=== PATIENT | male | born 1995 | race Caucasian/White ===

== ENCOUNTER 2017-12-24 01:47 | Emergency (ER) | payer BC ==
--- NOTE | 2017-12-24 03:26 | ER Document Report ---
ED General - General Chief Complaint: Abdominal Pain Stated Complaint: ABDOMINAL PAIN Time Seen by Provider: 12/24/17 02:19 Notes: Patient is a 22-year-old male without past medical history, no prior surgical history who presents with 24 hours of right upper quadrant abdominal pain with associated nausea and anorexia. The patient reports that the pain has been constant but intermittently worsens. He describes the worsening episodes as severe, stabbing pain to his right upper quadrant. He notes associated nausea with this pain but has not vomited. Nothing seems to trigger the pain and it does ease off without intervention. He denies any history of similar symptoms in the past. He has not seen his primary doctor regarding today's concerns. He denies any associated fever or constitutional symptoms. TRAVEL OUTSIDE OF THE [place] IN LAST 30 DAYS: No - Related Data Allergies/Adverse Reactions: aspirin Allergy (Intermediate, Verified 12/24/17 03:18) Past Medical History - General Information source: Patient - Social History Smoking Status: Never Smoker Chew tobacco use (# tins/day): No Frequency of alcohol use: None Drug Abuse: None Lives with: Spouse/Significant other Family History: Reviewed & Not Pertinent Patient has suicidal ideation: No Patient has homicidal ideation: No Renal/ Medical History: Denies: Hx Peritoneal Dialysis Past Surgical History: Comment Only: Hx Cholecystectomy - mother has a hx of cholecystectomy. Review of Systems - Review of Systems Notes: Constitutional: Negative for fever. HENT: Negative for sore throat. Eyes: Negative for visual changes. Cardiovascular: Negative for chest pain. Respiratory: Negative for shortness of breath. Gastrointestinal: Positive for abdominal pain and nausea Genitourinary: Negative for dysuria. Musculoskeletal: Negative for back pain. Skin: Negative for rash. Neurological: Negative for headaches, weakness or numbness. 10 point ROS negative except as marked above and in HPI. Physical Exam - Vital signs Vitals: Temp Pulse Resp BP Pulse Ox 97.7 F 74 20 151/78 H 98 12/24/17 01:48 12/24/17 01:48 12/24/17 01:48 12/24/17 01:48 12/24/17 01:48 Interpretation: Hypertensive Notes: PHYSICAL EXAMINATION: GENERAL: Well-appearing, well-nourished and in no acute distress. HEAD: Atraumatic, normocephalic. EYES: Pupils equal round and reactive to light, extraocular movements intact, sclera anicteric, conjunctiva are normal. ENT: nares patent, oropharynx clear without exudates. Moist mucous membranes. NECK: Normal range of motion, supple without lymphadenopathy LUNGS: Breath sounds clear to auscultation bilaterally and equal. No wheezes rales or rhonchi. HEART: Regular rate and rhythm without murmurs ABDOMEN: Soft, focal tenderness of the right upper quadrant with a positive Benavidez sign. No rebound or guarding. No other localized areas of tenderness EXTREMITIES: Normal range of motion, no pitting or edema. No cyanosis. NEUROLOGICAL: No focal neurological deficits. Moves all extremities spontaneously and on command. PSYCH: Normal mood, normal affect. SKIN: Warm, Dry, normal turgor, no rashes or lesions noted. Course - Re-evaluation Re-evalutation: 12/24/17 03:26 Patient's presentation appears to most consistent with acute cholecystitis versus symptomatic cholelithiasis. Bedside ultrasound does show gallstones and a slightly enlarged gallbladder. The patient has no additional areas of pain. Alternative diagnostic considerations include an acute pancreatitis, less likely an acute hepatitis or gastritis. Will obtain basic laboratories in addition to a right upper quadrant ultrasound to further assess. 12/24/17 04:38 Right upper quadrant ultrasound shows gallstones without any pericholecystic fluid or wall thickening or signs to be consistent with acute cholecystitis. Laboratories are likewise reassuring without any evidence of an acute hepatitis , pancreatitis or leukocytosis. The patient has been p.o. challenged and has tolerated fluids without any difficulty recurrence of pain. At this time I clinically suspect symptomatic cholelithiasis. I have informed the patient to avoid any kind of fat containing food, encouraged weight loss, and have encouraged him to follow-up closely with a surgeon as an outpatient and provided him a referral. At this time will discharge with return precautions and follow-up recommendations. Verbal discharge instructions given a the bedside and opportunity for questions given. Medication warnings reviewed. Patient is in agreement with this plan and has verbalized understanding of return precautions and the need for primary care follow-up in the next 24-72 hours. - Vital Signs Vital signs: Temp Pulse Resp BP Pulse Ox 97.7 F 74 20 151/78 H 98 12/24/17 01:48 12/24/17 01:48 12/24/17 01:48 12/24/17 01:48 12/24/17 01:48 - Laboratory Result Diagrams: 12/24/17 03:25 12/24/17 03:25 Laboratory results interpreted by me: 12/24/17 12/24/17 03:25 03:25 WBC 10.9 H Alkaline Phosphatase 37 L - Diagnostic Test Radiology reviewed: Reports reviewed Discharge - Discharge Clinical Impression: Right upper quadrant abdominal pain, Symptomatic cholelithiasis, Morbid obesity Condition: Good Disposition: HOME, SELF-CARE Additional Instructions: You have gallstones that are causing your symptoms. Be sure to avoid fat containing foods until you follow-up with a surgeon to have the gallbladder removed as eating these foods will trigger your pain. Please return to the emergency department if you develop a fever greater than 100.4F, persistent vomiting, worsening of your pain, or any other symptoms that are worrisome to you. As we discussed today, please strongly consider losing weight. Your obesity will result in a shorter life and serious diagnoses including heart attacks, stroke, diabetes, high blood pressure, high cholesterol, kidney failure, and will also result in a much less enjoyable life due to these chronic conditions. Focus on gradual life style changes including removing sugared beverages and processed foods from your diet and at least 30 minutes of moderate activity daily. Try to target 4-5lbs of weight loss per month. Referrals: RICHARD PUENTES MD [Primary Care Provider] - Follow up as needed DOMINICK CEDILLO MD [ACTIVE STAFF] - Follow up in 3-5 days
--- NOTE | 2017-12-24 03:31 | RADIOLOGY REPORT (SQ) ---
EXAM DESCRIPTION: U/S ABDOMEN LIMITED W/O DOP CLINICAL HISTORY: 22 years, Male, ruq pain COMPARISON: None. LIMITATIONS: None. FINDINGS: Cholelithiasis. Negative sonographic Benavidez's test. No intra or extrahepatic ductal dilation including a 0.4 cm diameter common bile duct. Mild hepatic steatosis. 11 cm right kidney, aorta, and obscure pancreas appear otherwise unremarkable. IMPRESSION: No acute findings. Cholelithiasis.
[2017-12-24 03:37] LABS: ABSOLUTE BASOPHILS # (AUTO) 0.1 10^3/uL (0.0-0.2); ABSOLUTE EOSINOPHILS # (AUTO) 0.1 10^3/uL (0.0-0.6); ABSOLUTE LYMPHOCYTES (AUTO) 2.9 10^3/uL (0.5-4.7); ABSOLUTE MONOCYTES (AUTO) 0.8 10^3/uL (0.1-1.4); BASOPHILS % (AUTO) 0.5 % (0-2); EOSINOPHILS % (AUTO) 1.2 % (0-6); HEMATOCRIT 43.2 % (37.9-51.0); HEMOGLOBIN 14.7 g/dL (13.5-17.0); LYMPHOCYTES % (AUTO) 26.4 % (13-45); MEAN CORPUSCULAR HEMOGLOBIN 29.5 pg (27.0-33.4); MEAN CORPUSCULAR HGB CONC 34.1 g/dL (32.0-36.0); MEAN CORPUSCULAR VOLUME 87 fl (80-97); MONOCYTES % (AUTO) 7.6 % (3-13); PLATELET COUNT 195 10^3/uL (150-450); RED BLOOD COUNT 4.99 10^6/uL (4.35-5.55); RED CELL DISTRIBUTION WIDTH 12.7 % (11.5-14.0); SEGMENTED NEUTROPHILS % (AUTO) 64.3 % (42-78); TOTAL CELLS COUNTED % (AUTO) 100 %; WHITE BLOOD COUNT 10.9 10^3/uL (4.0-10.5)
[2017-12-24 04:01] LABS: ALANINE AMINOTRANSFERASE 37 U/L (21-72); ALBUMIN 4.3 g/dL (3.5-5.0); ALKALINE PHOSPHATASE 37 U/L (38-126); ANION GAP 9 (5-19); ASPARTATE AMINO TRANSFERASE 19 U/L (17-59); BILIRUBIN,DIRECT 0.3 mg/dL (0.0-0.4); BILIRUBIN,TOTAL 0.3 mg/dL (0.2-1.3); BLOOD UREA NITROGEN 13 mg/dL (7-20); CALCIUM 9.8 mg/dL (8.4-10.2); CARBON DIOXIDE 27 mmol/L (22-30); CHLORIDE 107 mmol/L (98-107); GLUCOSE 95 mg/dL (75-110); LIPASE 131.4 U/L (23-300); POTASSIUM 4.2 mmol/L (3.6-5.0); SODIUM 142.5 mmol/L (137-145); TOTAL PROTEIN 6.8 g/dL (6.3-8.2)
[2017-12-24 05:04] VITALS: BP 154/69
== END 2017-12-24 05:02 | disposition home or self-care (01) ==
LOC: ER 01:47
DX: K80.20 Calculus of gallbladder without cholecystitis without obstruction (principal); R10.11 Right upper quadrant pain; R11.0 Nausea; R63.0 Anorexia; E66.01 Morbid (severe) obesity due to excess calories; Z68.41 Body mass index [BMI] 40.0-44.9, adult; Z88.6 Allergy status to analgesic agent
CPT/HCPCS: 36415; 76705; 80053; 83690; 85025; 99284

== ENCOUNTER 2018-01-22 05:26 | Day surgery (SDC) | payer BC ==
--- NOTE | 2018-01-15 22:38 | EKG REPORT ---
SEVERITY:- ABNORMAL ECG - SINUS BRADYCARDIA NONSPECIFIC INTRAVENTRICULAR CONDUCTION DELAY : Confirmed by: Jayant Mancia 15-Jan-2018 22:37:41
[~2018-01-22 05:26] MED LIST: ACETAMINOPHEN 325 MG TABLET PO PRN; CEFAZOLIN 1 GM/D5W RTU 1 GM/50 ML RTUPB IV PRN; LACTATED RINGERS 1000 ML IV PRN; LIDOCAINE 0.5% INJ-PF (5 MG/ML) 50 ML SDV SUBCUT PRN
[2018-01-22] MEDS ORDERED: FENTANYL CITRATE INJ/PF 250 MCG/5 ML AMPULE ONE (06:49)
[2018-01-22] MEDS ORDERED: MIDAZOLAM 2 MG/2 ML INJ ONE (06:49)
[2018-01-22] MEDS ORDERED: EPHEDRINE SULFATE INJ 50 MG/1 ML AMPULE ONE (06:50)
[2018-01-22] MEDS ORDERED: PROPOFOL INJ 200 MG/20 ML VIAL IV ONE (06:50)
[2018-01-22] MEDS ORDERED: HYDROMORPHONE HCL INJ/PF 2 MG/ML AMPULE ONE (06:50)
[2018-01-22] MEDS ORDERED: ACETAMINOPHEN 100 ML IV ONE (06:50)
[2018-01-22] MEDS ORDERED: BUPIVACAINE HCL 0.25 % INJ/PF (2.5 MG/1 ML) 30 ML VIAL ONE (06:57)
[2018-01-22] MEDS ORDERED: DIPHENHYDRAMINE HCL 50 MG/ML VIAL IV PRN (07:52)
[2018-01-22] MEDS ORDERED: OXYCODONE-ACETAMINOPHEN 5-325 MG TABLET PO PRN ×4 (07:52→09:35)
[2018-01-22] MEDS ORDERED: FENTANYL CITRATE INJ/PF 100 MCG/2 ML AMPUL IV PRN ×3 (07:52)
[2018-01-22] MEDS ORDERED: PROMETHAZINE HCL INJ 25 MG/1 ML VIAL IV PRN ×2 (07:52)
[2018-01-22] MEDS ORDERED: MEPERIDINE HCL/PF INJ 25 MG/1 ML DISP.SYRIN IV PRN (07:52)
--- NOTE | 2018-01-22 08:25 | Operative Report ---
Operative Report DATE OF SURGERY: 01/22/18 PREOPERATIVE DIAGNOSIS: 1. Symptomatic cholelithiasis with cholecystitis. 2. Obesity POSTOPERATIVE DIAGNOSIS: Same OPERATION: Laparoscopic cholecystectomy SURGEON: DOMINICK JEFFREY PUBLICATIONS DISTRIBUTION CLERK: TOM LOUISE ANESTHESIA: GA TISSUE REMOVED OR ALTERED: 1 gallbladder with stone COMPLICATIONS: None ESTIMATED BLOOD LOSS: Scant INTRAOPERATIVE FINDINGS: See below PROCEDURE: After obtaining informed consent, the patient was taken to the operating room. General Anesthesia was induced; the arms were extended, and the abdomen was exposed, and prepped and draped in a sterile fashion. Instrumentation was set up for laparoscopic cholecystectomy. Surgical plan and surgical timeout were conducted. A vertical incision was made above the umbilicus, and a verres needle was inserted uneventfully into the peritoneal cavity. After attempts at insufflation were unsuccessful due to high pressure and uncertainty as the position of the Veress needle, we aborted the supraumbilical approach. Skin was anesthetized in the right sub still area, skin incision made with a 15 blade, and Veress needle successfully inserted into the peritoneal cavity. Pneumoperitoneum was established, Veress needle removed, the 5 mm port was inserted. Flexible viewing scope was inserted, and visualization of the supraumbilical area revealed air in the retroperitoneal space consistent with unsuccessful insufflation following the first Veress needle insertion attempt. Under direct visualization the supraumbilical 5 mm port was inserted uneventfully, and 2 additional 5 mm ports were inserted one in the subxiphoid and forth in the subcostal position. Of note due to patient's morbid obesity, with some challenge getting the ports into position. Nonetheless there was no evidence of visceral or vascular injury Grafts were placed on the fundus and the infundibulum and the gallbladder elevated away from the liver. The patient was placed in steep the infundibulum and elevating it from the surrounding tissue. Eventually by manipulating the grasper, we are able to get the infundibulum sufficiently elevated. We used hook cautery to mobilize the infundibulum. The cystic artery was in his usual location, accompanied by the node of Calot. Photos were taken. After we had elevated the infundibulum of the lower portion of the gallbladder, it was apparent that we had transected the cystic duct. We noticed this because there was a small dot of bile on the infundibulum. We looked down below adjacent to the takeoff of the cystic artery and we could identify the very small, narrow cystic duct stump amidst the surrounding fatty tissue. We photographed it. We immediately recognized what transpired which was the transection of the cystic duct directly from its attachment to the infundibulum of the gallbladder. We now placed 2 clips right onto the cystic duct stump, and photographed it. We felt the clips were secure and safe. We now divided the cystic artery after clipping it twice proximally once distally. The gallbladder is moved from the liver bed using hook cautery dissection, and then brought out of the patient to the supraumbilical port site after stretching the fascia slightly. There was no spillage of bile or stones in the peritoneal cavity. Patient had one very large 3 cm stone. We returned to the peritoneal cavity check for bleeding, and evidence of bile leak, and there was none. We Confirmed satisfactory placement of clips on cystic duct and cystic artery were secured . At this point we felt the operation was complete. The subcutaneous tissue was then anesthetized with quarter percent Marcaine Sponge and needle counts are correct. All ports removed under direct visualization pneumoperitoneum evacuated, and 5 mm port wounds closed with 3-0 Vicryl suture, benzoin and Steri-Strips. The patient was extubated, and taken to the recovery room in stable condition. The physician education administrative assistant, Ms. Ramirez, provided assistance during this case by: Assisting and port insertion, retracting tissue, instillation of local anesthesia and closure of skin incisions.
--- NOTE | 2018-01-22 09:13 | Discharge Summary ---
Discharge Summary (SDC) - Discharge Final Diagnosis: cholecystitis with cholelithiasis Date of Surgery: 01/22/18 Discharge Date: 01/22/18 Condition: Stable Treatment or Instructions: [facility] [address] [place] [id number] Discharge Instructions: Laparoscopic Surgery 1. General Information: a. DO NOT DRIVE a car or operate dangerous machinery for 3-4 days or while taking narcotic pain pills. b. DO NOT consume alcohol, tranquilizers, sleeping medications or any non- prescribed medications for 24 hours unless approved by your doctor or as long as taking narcotic prescription medications. c. DO NOT make important decisions or sign any important papers for the first 24 hours after surgery. d. When discharged home the same day of surgery have a responsible person with you for the first night. 2. Activity Restrictions: 2 weeks . a. NO heavy lifting, straining abdominal muscles, bending over a lot, yard work, house work, or sports for [address] for 3-4 days . c. It is fine to go for walks, up and down steps, ride in a car. d. Elevate your head when sleeping/resting. 3. Treatment: a. You may shower 24 hours after surgery, no baths or swimming for 2 weeks. Remove band-aids or dressings before shower but leave paper strips (steri-strips ) on the skin to fall off on their own. If still on at postoperative visit they will be removed then. b. Drainage of fluid or blood is not unusual from an incision. If occurs, you can clean with peroxide and cotton ball daily and cover with dry gauze until the wound seals. c. If a lot of bleeding occurs, you can hold pressure with a gauze or cloth over the site for 10 minutes and it will usually stop. If bleeding continues you will need to call for possible evaluation in office or emergency room. 4. Medications: a. _Toradol____ may be taken for pain as needed, one tablet every 6 hours. b. You should resume all normal medications unless a change is specified by your doctors. 5. Diet: Begin with clear liquids and may progress to your normal diet if not nauseated. No high fat, high protein foods the day of surgery. 6. The following may occur after laparoscopic surgery: a. Shoulder or upper back ache from retained gas that should resolve in 1-2 days b. Soreness and bruising at incision sites will resolve with time. c. Scrotal swelling (labia in women) and bruising is often seen after hernia surgery. d. Sore throat e. Fatigue may last days to weeks. f. Difficulty urinating may occur and may need to come into emergency room for urinary catheter placement. 7. Notify Physician If: a. Worsening or pain not improved with pain medication b. Persistent nausea and vomiting c. Fever above 101 d. Persistent bleeding or swelling at operative site e. Unable to urinate and uncomfortable bladder 6-8 hours after surgery 8..Follow Up Care: a. Schedule a follow up appointment with your doctor for 2 weeks. In the event of any postoperative problems or questions or you may call the office during business hours or the On-Call physician evenings and weekends at [facility]. [facility] I understand the instructions for my postoperative care as described above and a copy has been given to me. Patient/Significant Other Witness Date Prescriptions: Ketorolac Tromethamine [Toradol 10 mg Tablet] 10 mg PO Q6HP PRN #20 tablet PRN Reason: Referrals: RICHARD PUENTES MD [Primary Care Provider] - Discharge Diet: Other (Comments) - avoid fatty/greasy foods Discharge Activity: Activity As Tolerated Report the Following to Your Physician Immediately: Nausea, Vomiting, Fever over 101 Degrees, Drainage-Foul Smelling
[2018-01-22] MEDS ORDERED: DIPHENHYDRAMINE HCL 50 MG/ML VIAL ONE (09:29)
[2018-01-22] MEDS ORDERED: DEXAMETHASONE SOD PHOS INJ 10 MG/1 ML VIAL ONE (09:31)
[2018-01-22 10:58] VITALS: BP 129/67
[2018-01-22] MEDS ORDERED: ROCURONIUM BROMIDE INJ 50 MG/5 ML VIAL IV ONE (12:41)
[2018-01-22] MEDS ORDERED: ONDANSETRON HCL INJ/PF 4 MG/2 ML SDV ONE (12:41)
[2018-01-22] MEDS ORDERED: NEOSTIGMINE METHYLSULFATE 10 MG/10 ML VIAL ONE (12:41)
[2018-01-22] MEDS ORDERED: GLYCOPYRROLATE INJ 0.4 MG/2 ML VIAL ONE (12:41)
[2018-01-22] MEDS ORDERED: SUCCINYLCHOLINE CHLORIDE INJ 200 MG/10 ML VIAL ONE (12:41)
[2018-01-22] MEDS ORDERED: DEXAMETHASONE SOD PHOSPHATE INJ 4 MG/1 ML VIAL ONE (12:41)
== END 2018-01-22 10:35 | disposition home or self-care (01) ==
LOC: OROUT 05:26
PROVIDERS: ATTEND Surgery
DX: K80.10 Calculus of gallbladder with chronic cholecystitis without obstruction (principal); J45.909 Unspecified asthma, uncomplicated; F17.210 Nicotine dependence, cigarettes, uncomplicated; E66.9 Obesity, unspecified; E66.01 Morbid (severe) obesity due to excess calories; Z88.6 Allergy status to analgesic agent; Z86.79 Personal history of other diseases of the circulatory system; Z68.41 Body mass index [BMI] 40.0-44.9, adult
CPT/HCPCS: 93005; 88304 ×2; 93010; 47562; J2250; J0690; J3490; J1100 ×2; J1200; J3010; J1170; J0330; J2405; J2704; J0131; 790

== ENCOUNTER 2019-05-18 23:41 | Emergency (ER) | payer BC ==
[2019-05-19 00:13] VITALS: BP 137/87
[2019-05-19] MEDS ORDERED: ACETAMINOPHEN 325 MG TABLET PO ONE (00:44)
[2019-05-19] MEDS ORDERED: METOCLOPRAMIDE HCL 10 MG TABLET PO ONE (00:44)
--- NOTE | 2019-05-19 00:48 | ER Document Report ---
ED Head/Face/Scalp Injury - General Chief Complaint: Head Injury Stated Complaint: HEAD AND NECK PAIN Time Seen by Provider: 05/19/19 00:44 Primary Care Provider: RICHARD PUENTES MD [ASSOCIATE] - Follow up as needed Notes: Patient is a 23-year-old male that comes to the emergency department for chief complaint of head injury. This happened at approximately 6 AM in the morning, he states he stood up and accidentally hit his head on a pipe. He states that later he developed a headache (approximately 2 hours later), he states that after he got home the headache improved, however then after sleeping he woke up and he had a headache again. He states the headache became severe so he came to the emergency department, however the headache now is almost resolved. He states he felt nauseated with the bad headache but he denies vomiting, he was not knocked out, he denies any alcohol, he does not take any daily medications. He denies any other locations of pain. He denies any other complaints. TRAVEL OUTSIDE OF THE [place] IN LAST 30 DAYS: No - Related Data Allergies/Adverse Reactions: aspirin Allergy (Intermediate, Verified 01/22/18 05:53) ITCHING Past Medical History - General Information source: Patient - Social History Smoking Status: Never Smoker Drug Abuse: None Lives with: Family Family History: Reviewed & Not Pertinent - Past Medical History Cardiac Medical History: Denies: Hx Coronary Artery Disease, Hx Heart Attack, Hx Hypertension Pulmonary Medical History: Reports: Hx Asthma - CHILD, HASNT NEEDED INHALER IN YRS Denies: Hx Bronchitis, Hx COPD, Hx Pneumonia Neurological Medical History: Denies: Hx Cerebrovascular Accident, Hx Seizures Renal/ Medical History: Denies: Hx Peritoneal Dialysis Musculoskeletal Medical History: Denies Hx Arthritis Past Surgical History: Comment Only: Hx Cholecystectomy - mother has a hx of cholecystectomy. - Immunizations Hx Diphtheria, Pertussis, Tetanus Vaccination: No Review of Systems - Review of Systems Constitutional: No symptoms reported EENT: No symptoms reported Cardiovascular: No symptoms reported Respiratory: No symptoms reported Gastrointestinal: No symptoms reported Genitourinary: No symptoms reported Male Genitourinary: No symptoms reported Musculoskeletal: See HPI Skin: No symptoms reported Hematologic/Lymphatic: No symptoms reported Neurological/Psychological: See HPI Physical Exam - Vital signs Vitals: Temp Pulse Resp BP Pulse Ox 97.7 F 55 L 15 137/87 H 97 05/19/19 00:12 05/19/19 00:12 05/19/19 00:12 05/19/19 00:05/19/19 00:12 - Notes Notes: GENERAL: Alert, interacts well. No acute distress. HEAD: Normocephalic, atraumatic. Mild tenderness over the left posterior parietal scalp but no hematoma or open wound is noted. EYES: Pupils equal, round, and reactive to light. Extraocular movements intact. ENT: Oral mucosa moist, tongue midline. Oropharynx unremarkable. Airway patent. NECK: Full range of motion. Supple. Trachea midline. LUNGS: Clear to auscultation bilaterally, no wheezes, rales, or rhonchi. No respiratory distress. HEART: Borderline bradycardic, normal rhythm. No murmur ABDOMEN: Soft, non-tender. Non-distended. EXTREMITIES: Moves all 4 extremities spontaneously. No edema, normal radial and dorsalis pedis pulses bilaterally. No cyanosis. BACK: no cervical, thoracic, lumbar midline tenderness. No saddle anesthesia, normal distal neurovascular exam. Moves all extremities in full range of motion. NEUROLOGICAL: Alert and oriented x3. Normal speech. Cranial nerves II through XII grossly intact. PSYCH: Normal affect, normal mood. SKIN: Warm, dry, normal turgor. No rashes or lesions noted. Course - Re-evaluation Re-evalutation: Patient is well-appearing. I do not see any obvious hematoma over the head. He has no neurological deficits on exam and does not have any neurological deficits reported. He did not have vomiting, loss of consciousness, he does not have blood thinner medications and did not drink alcohol. In addition to this head injury happened this morning, headache worsen, resolved, returned, and now resolved. As result I have very low suspicion of intracranial hemorrhage. I did discuss the option of CAT scan the patient but patient declines, I feel this is appropriate based on his evaluation. I did discuss head injury precautions, expectations, postconcussive syndrome, return precautions in detail with patient and significant other. They state satisfaction and agreement with plan. - Vital Signs Vital signs: Temp Pulse Resp BP Pulse Ox 97.7 F 55 L 15 137/87 H 97 05/19/19 00:12 05/19/19 00:12 05/19/19 00:12 05/19/19 00:12 05/19/19 00:12 Discharge - Discharge Clinical Impression: Head injury Qualifiers: Encounter type: initial encounter Qualified Code(s): S09.90XA - Unspecified injury of head, initial encounter Condition: Stable Disposition: HOME, SELF-CARE Additional Instructions: Your symptoms and evaluation are reassuring. This is most likely a head injury that caused a mild concussion, you will most likely have some headaches, if you develop the headaches I recommend you try to rest/sleep to speed up your recovery time. This should resolve with time. See additional details on this below. Return immediately for any concerning symptoms, see head injury precautions listed below. Head Injury Precautions At this point, there is no evidence that your head injury is serious. Observation is necessary, however. If no pain medication was prescribed, you may take acetaminophen according to the directions on the bottle. Do not take any medication that may alter your level of alertness (unless you've discussed it with the doctor first). Limit activity for the first 24 hours. During the first 24 hours, check to see approximately every two to three hours that the patient is easily arousable, responds normally, and can perform common tasks such as walking without difficulty. Contact your doctor or go to the hospital if any of the following things occur: Persistent vomiting, difficulty in arousing the patient, worsening or continued headache, or failure to improve as expected. Head injuries can cause symptoms that persist for a few days or even a few weeks. Post-Concussion Syndrome Post-concussion syndrome often follows even a mild head injury. Dizziness, mild nausea, mild headache, trouble concentrating, and a general sense of "not being right" may persist for a week or two. This is a frequent complication of concussion. However, if the symptoms worsen, or new symptoms develop, you should be re-examined by the physician. There is no specific cure for post-concussion syndrome. You can take mild pain medication such as ibuprofen or acetaminophen. While you should not drive if you are dizzy, you can get back to your regular activities as quickly as the symptoms will allow. And while vigorous exercise may worsen the headache, mild physical activity often is helpful. Sitting and thinking about your symptoms will worsen them. If difficulties continue, you may need referral for special therapy to help you regain full mental function. Call the physician if you are worsening, or if symptoms are still present in one week. Report any new symptoms immediately. Forms: Return to Work Referrals: RICHARD PUENTES MD [ASSOCIATE] - Follow up as needed
== END 2019-05-19 01:14 | disposition home or self-care (01) ==
LOC: ER 23:41
DX: S09.90XA Unspecified injury of head, initial encounter (principal); R11.0 Nausea; W22.09XA Striking against other stationary object, initial encounter; Z88.6 Allergy status to analgesic agent; Z90.49 Acquired absence of other specified parts of digestive tract
CPT/HCPCS: 99283